=== PATIENT | female | born 1990 ===

== ENCOUNTER → 2020-09-29 | Outpatient (CLI) | payer OTHER | END | disposition home or self-care (01) | LOC: PRENATAL 09:56 | PROVIDERS: ATTEND Obstetrics & Gynecology Maternal & Fetal Medicine | DX: O26.843 Uterine size-date discrepancy, third trimester (principal); O26.873 Cervical shortening, third trimester; O60.03 Preterm labor without delivery, third trimester; Z36.89 Encounter for other specified antenatal screening; Z3A.29 29 weeks gestation of pregnancy ==

== ENCOUNTER 2020-11-30 10:55 | Inpatient (IN) | payer OTHER ==
[~2020-11-30] VITALS: Ht 165.1 cm; Wt 87.5 kg
[2020-11-30] MEDS ORDERED: PRENATAL CAPLE1 EAC1 PO (11:36)
== END 2020-12-02 13:18 | disposition home or self-care (01) | DRG 806 ==
LOC: LDR 10:55 → OB/GYN 12-01 00:32
PROVIDERS: ADMIT Obstetrics & Gynecology; ATTEND Obstetrics & Gynecology
PROC: 10E0XZZ Delivery of Products of Conception, External Approach (ICD-10-PCS; principal; 2020-11-30)
PROC: 0HQ9XZZ Repair Perineum Skin, External Approach (ICD-10-PCS; 2020-11-30)
PROC: 3E033VJ Introduction of Other Hormone into Peripheral Vein, Percutaneous Approach (ICD-10-PCS; 2020-11-30)
PROC: 4A0HXFZ Measurement of Products of Conception, Cardiac Rhythm, External Approach (ICD-10-PCS; 2020-11-30)
DX: O13.3 Gestational [pregnancy-induced] hypertension without significant proteinuria, third trimester (principal); O72.1 Other immediate postpartum hemorrhage; Z37.0 Single live birth; Z3A.38 38 weeks gestation of pregnancy; Z20.822 Contact with and (suspected) exposure to COVID-19